=== PATIENT | female | born 1970 | race Caucasian/White ===

== ENCOUNTER → 2018-09-03 | Outpatient (CLI) | payer OTHER | END | disposition home or self-care (01) | LOC: CFH 06:54 | PROVIDERS: ATTEND Family Medicine | DX: E04.9 Nontoxic goiter, unspecified (principal) | CPT/HCPCS: 76536 ==

== ENCOUNTER 2019-05-13 07:34 | Outpatient (CLI) | payer OTHER ==
[2019-05-13] MEDS ORDERED: LIDOCAINE 1%, 20ML ONE (08:52)
[2019-05-13] MEDS ORDERED: SODIUM BICARBONATE 4.2%, 5ML ONE (08:52)
[2019-05-13] MEDS ORDERED: LIDOCAINE 1%-EPI 1:100K, 20ML ONE (08:52)
== END 2019-05-13 23:59 | disposition home or self-care (01) ==
LOC: CFH 07:34
PROVIDERS: ATTEND Family Medicine
DX: R92.1 Mammographic calcification found on diagnostic imaging of breast (principal)
CPT/HCPCS: 19281; J3490

== ENCOUNTER 2019-05-25 05:50 | Day surgery (SDC) | payer OTHER ==
[~2019-05-25] VITALS: Ht 154.9 cm; Wt 90.9 kg
[~2019-05-25 05:50] MED LIST: AMLO10TA8 PO; PARO10TA3 PO; PRAV10TA2 PO
[2019-05-25] MEDS ORDERED: BUPIVACAINE/PF 0.5% ONE (06:15)
[2019-05-25] MEDS ORDERED: LACTATED RINGERS 1,000 ML IV SCH (06:44)
[2019-05-25] MEDS ORDERED: MEPERIDINE/PF 25MG/ML,1ML IVPush PRN (07:00)
[2019-05-25] MEDS ORDERED: PROMETHAZINE 25 MG/ML, 1ML IV PRN (07:00)
[2019-05-25] MEDS ORDERED: hydrALAzine 20 MG/ML, 1ML IV PRN (07:00)
[2019-05-25] MEDS ORDERED: OXYcodone 5 MG/5 ML ORAL.SOL UDC PO PRN ×2 (07:00→08:30)
[2019-05-25] MEDS ORDERED: LABETALOL 5MG/ML, 20ML IV PRN (07:00)
[2019-05-25] MEDS ORDERED: FENTANYL PF 100 MCG/2ML IV PRN (07:00)
[2019-05-25] MEDS ORDERED: ONDANSETRON 2MG/ML, 2ML IV PRN (07:00)
[2019-05-25] MEDS ORDERED: GABAPENTIN 300 MG CAPSULE PO ONE (07:00)
[2019-05-25] MEDS ORDERED: ACETAMINOPHEN 500 MG TABLET PO ONE (07:00)
[2019-05-25] MEDS ORDERED: HYDROmorphone 2 MG/ML, 1ML IVPush PRN ×2 (07:00→08:30)
[2019-05-25] MEDS ORDERED: EPHEDRINE 50 MG/ML, 1ML IVPush PRN (07:00)
[2019-05-25 07:09] LABS: HCG UR SG 1.022 (1.003-1.030)
[2019-05-25 07:21] VITALS: BP 127/85
[2019-05-25] MEDS ORDERED: FENTANYL PF 100 MCG/2ML ONE ×2 (07:44→08:03)
[2019-05-25] MEDS ORDERED: MIDAZOLAM 1 MG/ML, 2ML ONE (07:44)
[2019-05-25] MEDS ORDERED: DEXAMETHASONE 4 MG/ML, 1ML ONE (07:47)
[2019-05-25] MEDS ORDERED: PROPOFOL 10 MG/ML, 20ML ONE (07:47)
[2019-05-25] MEDS ORDERED: LIDOCAINE-MPF 2% ,5ML ONE (07:47)
[2019-05-25] MEDS ORDERED: CEFAZOLIN 1,000 MG ONE (07:47)
[2019-05-25] MEDS ORDERED: KETOROLAC 30 MG/1 ML ONE (07:54)
[2019-05-25] MEDS ORDERED: ONDANSETRON 2MG/ML, 2ML ONE (07:54)
[2019-05-25] MEDS ORDERED: EPINEPHRINE 1 MG/ML, 1ML INFIL ONE (08:04)
== END 2019-05-25 09:50 | disposition home or self-care (01) ==
LOC: OUT 05:50
PROVIDERS: ATTEND Surgery
DX: R92.0 Mammographic microcalcification found on diagnostic imaging of breast (principal); N60.02 Solitary cyst of left breast; E78.5 Hyperlipidemia, unspecified; F32.9 Major depressive disorder, single episode, unspecified; I10 Essential (primary) hypertension; F17.210 Nicotine dependence, cigarettes, uncomplicated; Z72.89 Other problems related to lifestyle; Z79.899 Other long term (current) drug therapy; Z88.8 Allergy status to other drugs, medicaments and biological substances
CPT/HCPCS: 19301; 76098; 81025; 88307; 88341; 88342; J0171; J0690; J1100; J1885; J2250; J2405; J2704; J3010; J7120

== ENCOUNTER → 2020-05-30 | Outpatient (CLI) | payer OTHER ==
[~2020-05-30] MED LIST changes: +AMLO-211 PO; -AMLO10TA8 PO
== END | disposition home or self-care (01) ==
LOC: CFH 07:11
PROVIDERS: ATTEND Family Medicine
DX: Z12.31 Encounter for screening mammogram for malignant neoplasm of breast (principal)
CPT/HCPCS: 77063; 77067